=== PATIENT | male | born 1950 | race Caucasian/White ===

== ENCOUNTER → 2020-11-13 | Outpatient (CLI) | payer OTHER ==
--- NOTE | 2020-11-13 12:02 | REP ---
INDICATION: EDEMA COMPARISON: None. TECHNIQUE: Real time compression and duplex Doppler interrogation of the bilateral lower extremity deep venous system is performed. Compression ultrasound is performed of the bilateral peroneal and posterior tibial veins. FINDINGS: Bilaterally, the common femoral, superficial femoral and popliteal veins are fully compressible with transducer pressure and demonstrate normal spontaneous and phasic flow, without evidence of deep venous thrombosis. No thrombus is seen in the bilateral visualized portions of the peroneal and posterior tibial veins. IMPRESSION: No evidence of deep venous thrombosis of the bilateral lower extremity femoral popliteal venous system. <Electronically signed by Justo Arias > 11/13/20 [id number]
== END ==
LOC: M RAD 11:01
PROVIDERS: ATTEND Internal Medicine
DX: R60.9 Edema, unspecified (principal)

== ENCOUNTER → 2020-12-02 | Outpatient (CLI) | payer OTHER ==
--- NOTE | 2020-12-03 23:38 | ECHO ---
ECHOCARDIOGRAM DATE OF PROCEDURE: 12/02/2020 Age: 70 Gender: Male Height: Weight: REFERRING PHYSICIAN: Dr. Titus Esposito PATIENT LOCATION: Outpatient REASON FOR TESTING: Pedal edema 2D MEASUREMENTS: IVS 1.3 cm LV 5.1 cm LVPW 1.2 cm LA 3.9 cm Aorta 4.1 cm DOPPLER MEASUREMENT Peak velocity across the aortic valve 0.9 m/s Peak velocity across the LVOT 0.6 m/s Mitral E 0.6 Mitral A 0.6 with a ratio of 1.0 2D COMMENTS: 1. Mildly increased left ventricular wall thickness with normal left ventricular size and normal global left ventricular systolic function. Estimated left ventricular systolic ejection fraction is 60 to 65%. 2. Normal left atrium. The right atrium appeared to be mildly enlarged. The right ventricle in limited views appeared to be mildly enlarged, but was marita well. 3. The atrial septum appeared to be normal without evidence of defect or shunt. 4. Mildly dilated aortic root at 4.1 cm. 5. No pericardial effusion seen. 6. Mildly calcified aortic valve with normal leaflet excursion. Normal mitral valve, tricuspid valve and pulmonic valve. The proximal pulmonary artery branches were not well visualized. 7. The inferior vena cava was not visualized. DOPPLER: It detects trace mitral regurgitation, trace aortic regurgitation. Assessment of the left ventricular diastolic function appeared to be normal. IMPRESSION: 1. Normal global left ventricular systolic function with mild concentric left ventricular hypertrophy. Assessment of the left ventricle diastolic function appeared to be normal. 2. Aortic valve sclerosis with trace aortic regurgitation, but no aortic stenosis. 3. Trace mitral regurgitation. 4. Mildly dilated aortic root at 4.1 cm. 5. The right heart chambers appear to be mildly enlarged, but no evidence of significant tricuspid regurgitation or stenosis detected.
== END ==
LOC: M CARPUL 08:05
DX: R60.9 Edema, unspecified (principal)

== ENCOUNTER → 2022-11-21 | Outpatient (CLI) | payer OTHER | LOC: M RAD 09:45 | PROVIDERS: ATTEND Internal Medicine | DX: M13.862 Other specified arthritis, left knee (principal) ==